=== PATIENT | female | born 1970 | race African-American/Black ===

== ENCOUNTER 2018-01-10 06:45 | Emergency (ER) | payer SELFPAY ==
--- NOTE | 2018-01-10 07:53 | ER ---
Nurse's Notes [facility] Name: Kavitha Martinez Age: 47 yrs Sex: Female : 1970 Arrival Date: 01/10/2018 Time: 06:48 Bed 18 Private MD: Diagnosis: Cutaneous abscess of left axilla Presentation: 01/10 07:09 Presenting complaint: Patient states: abscess to left axilla X 2 days. Transition of iw care: patient was not received from another setting of care. Onset of symptoms was January 07, 2018. Risk Assessment: Do you want to hurt yourself or someone else? Patient reports no desire to harm self or others. Initial Sepsis Screen: Does the patient meet any 2 criteria? No. Patient's initial sepsis screen is negative. Does the patient have a suspected source of infection? No. Patient's initial sepsis screen is negative. Care prior to arrival: None. 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 - Social history:: Smoking status: Patient/guardian denies using tobacco. - Ebola Screening: : Patient negative for fever greater than or equal to 101.5 degrees Fahrenheit, and additional compatible Ebola Virus Disease symptoms Patient denies exposure to infectious person Patient denies travel to an Ebola-affected area in the 21 days before illness onset No symptoms or risks identified at this time. Screenin:27 Abuse screen: Denies threats or abuse. Nutritional screening: No deficits noted. em Tuberculosis screening: No symptoms or risk factors identified. Fall Risk None identified. Assessment: 07:40 General: Appears in no apparent distress. Behavior is calm, cooperative. Pain: iw Complains of pain in left axilla. Neuro: Level of Consciousness is awake, alert, obeys commands, Oriented to person, place, time, situation, Moves all extremities. Full function. Cardiovascular: Patient's skin is warm and dry. Respiratory: Respiratory effort is even, unlabored, Respiratory pattern is regular. GI: No signs and/or symptoms were reported involving the gastrointestinal system. Derm: Skin is intact. Derm: Abscess located on left axilla is nickel sized, has no drainage, is raised. Musculoskeletal: Range of motion: intact in all extremities. Vital Signs: 07:12 BP 190 / 87; Pulse 62; Resp 16; Temp 98.2; Pulse Ox 100% on R/A; Weight 74.84 kg; iw Height 5 ft. 2 in. (157.48 cm); Pain 9/10; 08:10 BP 172 / 95; Pulse 67; Resp 18; Pulse Ox 99% on R/A; em 07:12 Body Mass Index 30.18 (74.84 kg, 157.48 cm) iw 08:10 pt has not had BP meds this morning em ED Course: 06:48 Patient arrived in ED. ds1 07:11 Triage completed. iw 07:12 Arm band placed on. iw 07:19 Idalia Felipe FNP-C is PHCP. snw 07:19 Sonu Menchaca MD is Attending Physician. snw 07:26 Aki Mckenzie LVN is Primary Nurse. em 07:27 Patient has correct armband on for positive identification. Bed in low position. Call em light in reach. Adult w/ patient. 07:52 Rush Parsons MD is Referral Physician. snw 07:58 No provider procedures requiring assistance completed. Patient did not have IV access iw during this emergency room visit. Administered Medications: 08:05 Drug: Clindamycin 600 mg {Note: 2 ml right gluteus. 2 ml left gluteus.} Route: IM; em Site: Other; 08:15 Follow up: Response: No adverse reaction em 08:05 Drug: [place] 5 mg-325 mg 1 tabs Route: PO; em 08:15 Follow up: Response: No adverse reaction em Outcome: 07:53 Discharge ordered by . snw 08:20 Discharged to home ambulatory. em 08:20 Condition: good 08:20 Discharge instructions given to patient, Instructed on discharge instructions, follow up and referral plans. medication usage, Demonstrated understanding of instructions, follow-up care, medications, Prescriptions given X 2. 08:20 Patient left the ED. em Signatures: Idalia Felipe FNP-C FNP-[place] Aki Mckenzie, TAFFY CANDY MAKER TAFFY CANDY MAKER em Thang, Neela ds1 [place], RN RN iw
--- NOTE | 2018-01-10 07:53 | EDPHYS ---
Physician Documentation [facility] Name: Kavitha Martinez Age: 47 yrs Sex: Female : 1970 Arrival Date: 01/10/2018 Time: 06:48 Bed 18 Private MD: ED Physician Sonu Menchaca HPI: 01/10 08:00 This 47 yrs old Black Female presents to ER via Ambulatory with complaints of Bump snw Under Armpit. 08:00 Pt has hx of axillary abscess to right, tenderness and swelling to axilla on left x 2 snw days. Onset: The symptoms/episode began/occurred suddenly, 2 day(s) ago. Severity of symptoms: At their worst the symptoms were moderate. The patient has experienced a previous episode. The patient has not recently seen a physician, Sees Dr. Meija. no fever. 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 - Social history:: Smoking status: Patient/guardian denies using tobacco. - Ebola Screening: : Patient negative for fever greater than or equal to 101.5 degrees Fahrenheit, and additional compatible Ebola Virus Disease symptoms Patient denies exposure to infectious person Patient denies travel to an Ebola-affected area in the 21 days before illness onset No symptoms or risks identified at this time. ROS: 07:59 Constitutional: Negative for fever, chills, and weight loss, Eyes: Negative for injury, snw pain, redness, and discharge, ENT: Negative for injury, pain, and discharge, Neck: Negative for injury, pain, and swelling, Cardiovascular: Negative for chest pain, palpitations, and edema, Respiratory: Negative for shortness of breath, cough, wheezing, and pleuritic chest pain, Abdomen/GI: Negative for abdominal pain, nausea, vomiting, diarrhea, and constipation, Back: Negative for injury and pain, : Negative for injury, bleeding, discharge, and swelling, MS/Extremity: Negative for injury and deformity, Neuro: Negative for headache, weakness, numbness, tingling, and seizure. 07:59 Skin: Positive for abscess, of the left axilla. Exam: 07:58 Constitutional: This is a well developed, well nourished patient who is awake, alert, snw and in no acute distress. Head/Face: Normocephalic, atraumatic. Eyes: Pupils equal round and reactive to light, extra-ocular motions intact. Lids and lashes normal. Conjunctiva and sclera are non-icteric and not injected. Cornea within normal limits. Periorbital areas with no swelling, redness, or edema. ENT: Nares patent. No nasal discharge, no septal abnormalities noted. Tympanic membranes are normal and external auditory canals are clear. Oropharynx with no redness, swelling, or masses, exudates, or evidence of obstruction, uvula midline. Mucous membranes moist. Neck: Trachea midline, no thyromegaly or masses palpated, and no cervical lymphadenopathy. Supple, full range of motion without nuchal rigidity, or vertebral point tenderness. No Meningismus. Chest/axilla: Normal chest wall appearance and motion. Nontender with no deformity. Left axilla with pustule, no erythema, + chain of induration toward lateral axilla, Hx of same on right Cardiovascular: Regular rate and rhythm with a normal S1 and S2. No gallops, murmurs, or rubs. Normal PMI, no JVD. No pulse deficits. Respiratory: Lungs have equal breath sounds bilaterally, clear to auscultation and percussion. No rales, rhonchi or wheezes noted. No increased work of breathing, no retractions or nasal flaring. Abdomen/GI: Soft, non-tender, with normal bowel sounds. No distension or tympany. No guarding or rebound. No evidence of tenderness throughout. Back: No spinal tenderness. No costovertebral tenderness. Full range of motion. Skin: Warm, dry with normal turgor. Normal color with no rashes, no lesions, and no evidence of cellulitis. MS/ Extremity: Pulses equal, no cyanosis. Neurovascular intact. Full, normal range of motion. Neuro: Awake and alert, GCS 15, oriented to person, place, time, and situation. Cranial nerves II-XII grossly intact. Motor strength 5/5 in all extremities. Sensory grossly intact. Cerebellar exam normal. Normal gait. Psych: Awake, alert, with orientation to person, place and time. Behavior, mood, and affect are within normal limits. Vital Signs: 07:12 BP 190 / 87; Pulse 62; Resp 16; Temp 98.2; Pulse Ox 100% on R/A; Weight 74.84 kg; iw Height 5 ft. 2 in. (157.48 cm); Pain 9/10; 08:10 BP 172 / 95; Pulse 67; Resp 18; Pulse Ox 99% on R/A; em 07:12 Body Mass Index 30.18 (74.84 kg, 157.48 cm) iw 08:10 pt has not had BP meds this morning em MDM: 07:19 Patient medically screened. snw 07:59 Data reviewed: vital signs, nurses notes. Data interpreted: Pulse oximetry: on room air snw is 100 %. Interpretation: normal. Counseling: I had a detailed discussion with the patient and/or guardian regarding: the historical points, exam findings, and any diagnostic results supporting the discharge/admit diagnosis, the presence of at least one elevated blood pressure reading (>120/80) during this emergency department visit, the need for outpatient follow up, to return to the emergency department if symptoms worsen or persist or if there are any questions or concerns that arise at home. Special discussion: I have referred the patient to see his PCP for further evaluation of high blood pressure. Based on the history and exam findings, there is no indication for further emergent testing or inpatient evaluation. I discussed with the patient/guardian the need to see the general surgeon for further evaluation of the symptoms. I discussed with the patient/guardian the need to see the primary care provider for further evaluation of the symptoms. Administered Medications: 08:05 Drug: Clindamycin 600 mg {Note: 2 ml right gluteus. 2 ml left gluteus.} Route: IM; em Site: Other; 08:15 Follow up: Response: No adverse reaction em 08:05 Drug: [place] 5 mg-325 mg 1 tabs Route: PO; em 08:15 Follow up: Response: No adverse reaction em Disposition: 18 07:53 Discharged to Home. Impression: Cutaneous abscess of left axilla. - Condition is Stable. - Discharge Instructions: Skin Abscess, Heat Therapy. - Prescriptions for Clindamycin HCl 300 mg Oral Capsule - take 1 capsule by ORAL route every 6 hours for 10 days; 40 capsule. Diclofenac Sodium 75 mg Oral Tablet Sustained Release - take 1 tablet by ORAL route 2 times per day; 30 tablet. - Work release form, Medication Reconciliation Form, Thank You Letter, Antibiotic Education, Prescription Opioid Use form. - Follow up: Private Physician; When: 1 week; Reason: Recheck today's complaints, Continuance of care, Re-evaluation by your physician. Follow up: Rush Parsons MD; When: 2 - 3 days; Reason: Recheck today's complaints, Continuance of care. Addendum: 01/12/2018 10:09 Co-signature as Attending Physician, Sonu Menchaca MD. g s Signatures: Idalia Felipe, EDUCATIONAL DIAGNOSTICIAN-C EDUCATIONAL DIAGNOSTICIAN-Csnw Aki Mckenzie, MATEUS NATHANN [place], RN RN iw Sonu Menchaca MD MD gs Corrections: (The following items were deleted from the chart) 01/10 08:20 07:53 01/10/2018 07:53 Discharged to Home. Impression: Cutaneous abscess of left em axilla. Condition is Stable. Forms are Medication Reconciliation Form, Thank You Letter, Antibiotic Education, Prescription Opioid Use. Follow up: Private Physician; When: 1 week; Reason: Recheck today's complaints, Continuance of care, Re-evaluation by your physician. Follow up: Rush Parsons; When: 2 - 3 days; Reason: Recheck today's complaints, Continuance of care. snw
[2018-01-10] MEDS ORDERED: CLINDAMYCIN IV 150 MG/ML (4 mL) VIAL ONE (08:04)
[2018-01-10] MEDS ORDERED: HYDROCODONE/APAP 5/325 MG TAB ONE (08:04)
[2018-01-10 08:26] VITALS: TEMP 98.2
[2018-01-10 08:27] VITALS: BP 172/95; O2SAT 99
== END 2018-01-10 08:20 | disposition home or self-care (01) ==
LOC: ER 06:45
DX: L02.412 Cutaneous abscess of left axilla (principal); I10 Essential (primary) hypertension
CPT/HCPCS: 96372; 99283; S0077

== ENCOUNTER 2018-09-03 07:30 | Emergency (ER) | payer SELFPAY ==
[2018-09-03 08:15] LABS: Absolute Lymphocytes (CBC) 2.5 K/uL (0.7-4.9); Absolute Monocytes 0.4 K/uL (0.1-1.3); Absolute Neutrophil 5.2 K/uL (1.8-8.0); Basophils % 0.4 % (0-1.3); Eosinophils % 3.2 % (0-4.4); Hematocrit 37.5 % (36.0-45.0); Lymphocytes % 29.8 % (15.3-44.8); MPV 7.5 fL (7.6-11.3); Monocytes % 4.6 % (3.3-12.3); Protime INR 0.98; RBC Red Blood Cell Count 4.39 M/uL (3.86-4.86)
[2018-09-03 08:27] LABS: ALT/SGPT 22 U/L (12-78); AST/SGOT 15 U/L (15-37); Alkaline Phosphatase 123 U/L (45-117); BUN Blood Urea Nitrogen 10 mg/dL (7-18); Bicarbonate 28 mmol/L (21-32); Bilirubin Direct 0.2 mg/dL (0-0.2); Bilirubin Total 0.6 mg/dL (0.2-1.0); Glucose Level 88 mg/dL (74-106); Magnesium 2.4 mg/dL (1.8-2.4); NT PRO-BNP 58 pg/mL (<125); Potassium 3.9 mmol/L (3.5-5.1); Protein, Total 8.4 g/dL (6.4-8.2); Sodium Level 142 mmol/L (136-145); Troponin (Emerg Dept Use Only) < 0.02 ng/mL (0.0-0.045)
--- NOTE | 2018-09-03 08:37 | EKG ---
Test Date: 2018-09-03 Test Time: 07:58:15 Greeter: PATRICIA MEASUREMENT RESULTS: Intervals: Rate: 65 NV: 178 QRSD: 84 QT: 438 QTc: 455 [place]: P: 42 NV: 178 QRS: 10 T: 44 INTERPRETIVE STATEMENTS: Normal sinus rhythm Minimal voltage criteria for LVH, may be normal variant Septal infarct, age undetermined Abnormal ECG Compared to ECG 04/25/2017 10:18:25 Myocardial infarct finding now present Electronically Signed On 09-03-18 08:36:23 CDT by Ayan Grant
--- NOTE | 2018-09-03 08:37 | RAD REPORT ---
EXAM DESCRIPTION: Dwaine Single View09/03/2018 8:21 am CLINICAL HISTORY: Chest pain COMPARISON: 2016 FINDINGS: The lungs appear clear of acute infiltrate. The heart is normal size IMPRESSION: No acute abnormalities displayed
--- NOTE | 2018-09-03 08:41 | RAD REPORT ---
EXAM DESCRIPTION: RAD - Hip Left 2 View - 09/03/2018 8:21 am CLINICAL HISTORY: Left hip pain FINDINGS: No fracture or dislocation is seen. Mild joint space narrowing involves the left hip
--- NOTE | 2018-09-03 08:43 | RAD REPORT ---
EXAM DESCRIPTION: RAD - Knee Left 3 View - 09/03/2018 8:21 am CLINICAL HISTORY: Left knee pain FINDINGS: Marked osteoarthritis involves the lateral compartment consisting of joint space narrowing , subchondral sclerosis and osteophytes. No fracture or dislocation seen
--- NOTE | 2018-09-03 08:53 | EDPHYS ---
Physician Documentation [facility] Name: Kavitha Martinez Age: 48 yrs Sex: Female : 1970 Arrival Date: 09/03/2018 Time: 07:32 Bed 5 Private MD: Jc Mejia E ED Physician Arya Dangelo HPI: 09/03 08:05 This 48 yrs old Black Female presents to ER via Ambulatory with complaints of Hip Pain, pm1 Leg Pain, Lung Pain. 08:05 The patient or guardian reports chest pain that is located primarily in the right pm1 breast. Onset: 2 day(s) ago. The pain does not radiate. Associated signs and symptoms: Pertinent negatives: abdominal pain, cough, headache, shortness of breath. The chest pain is described as squeezing. Modifying factors: The symptoms are alleviated by nothing. the symptoms are aggravated by deep breath, palpation of area. Severity of pain: in the emergency department the pain is actually worse. The patient has not experienced similar symptoms in the past. The patient has not recently seen a physician. Patient with left knee pain and left hip pain that has been present for multiple months. Pain is worse in the morning. Historical: - Allergies: 07:46 NKA; ss - Home Meds: 07:46 lisinopril 10 mg Oral tab once daily [Active]; ss - PMHx: 07:46 Hypertension; GERD; ss - PSHx: 07:46 Knee surgery; L hip replacement; ss - Immunization history:: Adult Immunizations up to date. - Social history:: Smoking status: Patient/guardian denies using tobacco. - Ebola Screening: : Patient denies exposure to infectious person Patient denies travel to an Ebola-affected area in the 21 days before illness onset. ROS: 08:05 Constitutional: Negative for fever, chills, and weight loss, Eyes: Negative for injury, pm1 pain, redness, and discharge, ENT: Negative for injury, pain, and discharge, Neck: Negative for injury, pain, and swelling. 08:05 Respiratory: Negative for shortness of breath, cough, wheezing, and pleuritic chest pain, Abdomen/GI: Negative for abdominal pain, nausea, vomiting, diarrhea, and constipation, Back: Negative for injury and pain, : Negative for injury, bleeding, discharge, and swelling. 08:05 Skin: Negative for injury, rash, and discoloration, Neuro: Negative for headache, weakness, numbness, tingling, and seizure. 08:05 Cardiovascular: Positive for chest pain, Negative for edema, orthopnea, palpitations. 08:05 MS/extremity: Positive for pain, of the left hip and left knee, Negative for decreased range of motion, deformity. Exam: 08:05 Constitutional: This is a well developed, well nourished patient who is awake, alert, pm1 and in no acute distress. Head/Face: Normocephalic, atraumatic. Eyes: Pupils equal round and reactive to light, extra-ocular motions intact. Lids and lashes normal. Conjunctiva and sclera are non-icteric and not injected. Cornea within normal limits. Periorbital areas with no swelling, redness, or edema. ENT: Nares patent. No nasal discharge, no septal abnormalities noted. Tympanic membranes are normal and external auditory canals are clear. Oropharynx with no redness, swelling, or masses, exudates, or evidence of obstruction, uvula midline. Mucous membranes moist. Neck: Trachea midline, no thyromegaly or masses palpated, and no cervical lymphadenopathy. Supple, full range of motion without nuchal rigidity, or vertebral point tenderness. No Meningismus. 08:05 Cardiovascular: Regular rate and rhythm with a normal S1 and S2. No gallops, murmurs, or rubs. Normal PMI, no JVD. No pulse deficits. Respiratory: Lungs have equal breath sounds bilaterally, clear to auscultation and percussion. No rales, rhonchi or wheezes noted. No increased work of breathing, no retractions or nasal flaring. Abdomen/GI: Soft, non-tender, with normal bowel sounds. No distension or tympany. No guarding or rebound. No evidence of tenderness throughout. Back: No spinal tenderness. No costovertebral tenderness. Full range of motion. Skin: Warm, dry with normal turgor. Normal color with no rashes, no lesions, and no evidence of cellulitis. 08:05 Chest/axilla: Inspection: normal, Palpation: crepitus, is not appreciated, tenderness, of the right breast, that totally reproduces the patient's complaints. 08:05 Musculoskeletal/extremity: Extremities: grossly normal except: noted in the left knee: tenderness, There is no evidence of decreased ROM, deformity, swelling, noted in the left hip: no evidence of decreased ROM, deformity, tenderness. 08:05 Neuro: Orientation: is normal, Motor: moves all fours. 08:05 ECG: NSR 65 BPM pm1 Vital Signs: 07:46 BP 173 / 78; Pulse 57; Resp 16; Temp 97.6(O); Pulse Ox 100% on R/A; Weight 95.25 kg; ss Height 5 ft. 2 in. (157.48 cm); Pain 7/10; 08:30 BP 156 / 66; Pulse 64; Resp 16; Pulse Ox 99% on R/A; hb 09:30 BP 141 / 69; Pulse 60; Resp 16; Pulse Ox 99% on R/A; Pain 7/10; hb 07:46 Body Mass Index 38.41 (95.25 kg, 157.48 cm) ss MDM: 07:40 Patient medically screened. pm1 08:47 Data reviewed: vital signs. Data interpreted: Pulse oximetry: on room air is 100 %. pm1 Interpretation: normal. Counseling: I had a detailed discussion with the patient and/or guardian regarding: the historical points, exam findings, and any diagnostic results supporting the discharge/admit diagnosis, lab results, radiology results, the need for outpatient follow up, to return to the emergency department if symptoms worsen or persist or if there are any questions or concerns that arise at home. 09/03 07:49 Order name: Basic Metabolic Panel; Complete Time: 08:35 pm09/03 07:49 Order name: CBC with Diff; Complete Time: 08:35 pm09/03 07:49 Order name: LFT's; Complete Time: 08:35 pm09/03 07:49 Order name: Magnesium; Complete Time: 08:35 pm09/03 07:49 Order name: NT PRO-BNP; Complete Time: 08:35 pm09/03 07:49 Order name: PT-INR; Complete Time: 08:35 pm09/03 07:49 Order name: Hip Left 2 View XRAY; Complete Time: 08:46 pm09/03 07:49 Order name: Knee Left 3 View XRAY; Complete Time: 08:46 pm09/03 07:49 Order name: Troponin (emerg Dept Use Only); Complete Time: 08:35 pm1 09/03 07:49 Order name: XRAY Chest (1 view); Complete Time: 08:39 pm1 09/03 07:49 Order name: EKG; Complete Time: 07:50 pm1 09/03 07:49 Order name: Cardiac monitoring; Complete Time: 08:04 pm1 09/03 07:49 Order name: EKG - Nurse/Tech; Complete Time: 08:04 pm1 09/03 07:49 Order name: IV Saline Lock; Complete Time: 08:04 pm1 09/03 07:49 Order name: Labs collected and sent; Complete Time: 08:04 pm1 09/03 07:49 Order name: O2 Per Protocol; Complete Time: 08:04 pm1 09/03 07:49 Order name: O2 Sat Monitoring; Complete Time: 08:04 pm1 Administered Medications: 09:38 Drug: [place] 5 mg-325 mg 1 tabs Route: PO; hb 09:38 Follow up: Response: Medication administered at discharge. hb 09:38 Drug: Zofran 4 mg Route: PO; hb 09:38 Follow up: Response: Medication administered at discharge. hb Disposition: 09/03/18 08:52 Discharged to Home. Impression: Chest pain, unspecified, Pain in left hip, Pain in left knee. - Condition is Stable. - Discharge Instructions: Joint Pain, Arthritis, Nonspecific Chest Pain, Knee Pain, Hip Pain. - Prescriptions for Tramadol 50 mg Oral Tablet - take 1 tablet by ORAL route every 8 hours as needed; 12 tablet. Medrol (Marvin) 4 mg Oral Tablets, Dose Pack - take 1 tablet by ORAL route as directed - follow package instructions; 1 packet. - Work release form, Medication Reconciliation Form, Thank You Letter, Antibiotic Education, Prescription Opioid Use form. - Follow up: Emergency Department; When: As needed; Reason: Worsening of condition. Follow up: Private Physician; When: 2 - 3 days; Reason: Recheck today's complaints, Continuance of care, Re-evaluation by your physician. - Problem is new. - Symptoms have improved. Addendum: 09/08/2018 10:09 Co-signature as Attending Physician, Arya Dangelo MD I agree with the assessment and k dr plan of care. Signatures: Dispatcher [employer] Arya Rios MD MD [facility] Arianne Krueger RN RN Matthew Barajas, NONI DICTATING MACHINE TYPIST pm1 Karlie Larios, ED RN Corrections: (The following items were deleted from the chart) 09/03 09:41 08:52 09/03/2018 08:52 Discharged to Home. Impression: Chest pain, unspecifiedPain in hb left hip; Pain in left knee. Condition is Stable. Forms are Medication Reconciliation Form, Thank You Letter, Antibiotic Education, Prescription Opioid Use. Follow up: Emergency Department; When: As needed; Reason: Worsening of condition. Follow up: Private Physician; When: 2 - 3 days; Reason: Recheck today's complaints, Continuance of care, Re-evaluation by your physician. Problem is new. Symptoms have improved. pm1
--- NOTE | 2018-09-03 08:53 | ER ---
Nurse's Notes [facility] Name: Kavitha Martinez Age: 48 yrs Sex: Female : 1970 Arrival Date: 09/03/2018 Time: 07:32 Bed 5 Private MD: Jc Mejia E Diagnosis: Pain in left hip;Pain in left knee;Chest pain, unspecified Presentation: 09/03 07:44 Presenting complaint: Patient states: L hip and L knee pain x months. PT reports pain ss has been becoming progressively worse, especially in the mornings. Patient also c/o tightness under R breast x 2 days when taking a deep breath. Denies cough. Transition of care: patient was not received from another setting of care. Onset of symptoms is unknown. Risk Assessment: Do you want to hurt yourself or someone else? Patient reports no desire to harm self or others. Initial Sepsis Screen: Does the patient meet any 2 criteria? No. Patient's initial sepsis screen is negative. Does the patient have a suspected source of infection? No. Patient's initial sepsis screen is negative. Care prior to arrival: None. 07:44 Method Of Arrival: Ambulatory ss 07:44 Acuity: JORJE 3 ss Historical: - Allergies: 07:46 NKA; ss - Home Meds: 07:46 lisinopril 10 mg Oral tab once daily [Active]; ss - PMHx: 07:46 Hypertension; GERD; ss - PSHx: 07:46 Knee surgery; L hip replacement; ss - Immunization history:: Adult Immunizations up to date. - Social history:: Smoking status: Patient/guardian denies using tobacco. - Ebola Screening: : Patient denies exposure to infectious person Patient denies travel to an Ebola-affected area in the 21 days before illness onset. Screenin:58 Abuse screen: Denies threats or abuse. Denies injuries from another. Nutritional hb screening: No deficits noted. Tuberculosis screening: No symptoms or risk factors identified. Fall Risk None identified. Assessment: 07:55 General: Appears in no apparent distress. Behavior is calm, cooperative. Pain: Pain hb currently is 7 out of 10 on a pain scale. Neuro: Level of Consciousness is awake, alert, obeys commands, Oriented to person, place, time, situation. Cardiovascular: Heart tones S1 S2 present Capillary refill < 3 seconds Patient's skin is warm and dry. Respiratory: Airway is patent Respiratory effort is even, unlabored, Respiratory pattern is regular, symmetrical, Breath sounds are clear bilaterally. GI: No signs and/or symptoms were reported involving the gastrointestinal system. : No signs and/or symptoms were reported regarding the genitourinary system. EENT: No signs and/or symptoms were reported regarding the EENT system. Derm: Skin is intact, is healthy with good turgor. Musculoskeletal: Reports left hip pain. 08:45 Reassessment: Patient appears in no apparent distress at this time. Patient and/or hb family updated on plan of care and expected duration. Pain level reassessed. Patient is alert, oriented x 3, equal unlabored respirations, skin warm/dry/pink. 09:39 Reassessment: Patient appears in no apparent distress at this time. No changes from hb previously documented assessment. Vital Signs: 07:46 BP 173 / 78; Pulse 57; Resp 16; Temp 97.6(O); Pulse Ox 100% on R/A; Weight 95.25 kg; ss Height 5 ft. 2 in. (157.48 cm); Pain 7/10; 08:30 BP 156 / 66; Pulse 64; Resp 16; Pulse Ox 99% on R/A; hb 09:30 BP 141 / 69; Pulse 60; Resp 16; Pulse Ox 99% on R/A; Pain 7/10; hb 07:46 Body Mass Index 38.41 (95.25 kg, 157.48 cm) ED Course: 07:32 Patient arrived in ED. as 07:33 Jc Mejia MD is Private Physician. as 07:35 Matthew Barajas NP is PHCP. pm1 07:35 Arya Dangelo MD is Attending Physician. pm1 07:45 Triage completed. ss 07:46 Arm band placed on right wrist. ss 07:50 Karlie Larios RN is Primary Nurse. hb 07:58 Inserted saline lock: 22 gauge in right antecubital area, using aseptic technique. hb Blood collected. 08:01 EKG done, by oxygen equipment technician. reviewed by Matthew Barajas NP. at1 08:05 Patient has correct armband on for positive identification. Placed in gown. Bed in low hb position. Call light in reach. Side rails up X 1. 08:22 Hip Left 2 View XRAY In Process Unspecified. EDMS 08:22 Knee Left 3 View XRAY In Process Unspecified. EDMS 08:22 XRAY Chest (1 view) In Process Unspecified. EDMS 09:40 No provider procedures requiring assistance completed. IV discontinued, intact, hb bleeding controlled, No redness/swelling at site. Pressure dressing applied. Administered Medications: 09:38 Drug: [place] 5 mg-325 mg 1 tabs Route: PO; hb 09:38 Follow up: Response: Medication administered at discharge. hb 09:38 Drug: Zofran 4 mg Route: PO; hb 09:38 Follow up: Response: Medication administered at discharge. hb Outcome: 08:52 Discharge ordered by MD. pm1 09:40 Discharged to home ambulatory, with significant other. hb 09:40 Condition: stable 09:40 Discharge instructions given to patient, Instructed on discharge instructions, follow up and referral plans. medication usage, Demonstrated understanding of instructions, follow-up care, medications, Prescriptions given X 2. 09:41 Patient left the ED. hb Signatures: Dispatcher [employer] Viktoria Baker Shelby, RN RN ss Maggy Mcknight, home staging specialist EKG Tat1 Matthew Barajas, NONI TRANSPORTATION SUPERVISOR pm1 Karlie Larios, RN RN hb
[2018-09-03] MEDS ORDERED: ONDANSETRON 4 MG (ODT) TAB ONE (09:44)
[2018-09-03] MEDS ORDERED: HYDROCODONE/APAP 5/325 MG TAB ONE (09:44)
[2018-09-03 09:51] VITALS: TEMP 97.6
[2018-09-03 09:53] VITALS: O2SAT 99
[2018-09-03 09:54] VITALS: BP 141/69
== END 2018-09-03 09:41 | disposition home or self-care (01) ==
LOC: ER 07:30
DX: R07.9 Chest pain, unspecified (principal); M25.562 Pain in left knee; M25.552 Pain in left hip; I10 Essential (primary) hypertension; K21.9 Gastro-esophageal reflux disease without esophagitis
CPT/HCPCS: 36415; 71045; 80048; 80076; 83735; 83880; 84484; 85025; 85610; 93005; 99284

== ENCOUNTER 2019-10-06 08:57 | Emergency (ER) | payer SELFPAY ==
--- OUTSIDE RECORDS SUMMARY | 2019-10-06 09:54 | XMS REPORT ---
:1970 Author Organization [facility] t Address [address] [place] [address] Care Team Providers Name Role Phone Emily Allen Attending Clinician Problems This patient has no known problems. Allergies, Adverse Reactions, Alerts This patient has no known allergies or adverse reactions. Medications This patient has no known medications. Procedures This patient has no known procedures. Encounters Start End Encounter Admission Attending Care Care Encounter Source Date/Time Date/Time Type Type Clinicians Facility Department ID 2019-08-12 2019-08-12 Telephone Ling PAJERICHO [id number] 00:00:00 00:00:00 [facility] [id number] [place] [id number] [place] [id number] [address]al [address] Results This patient has no known results.
--- OUTSIDE RECORDS SUMMARY | 2019-10-06 09:54 | XMS REPORT | Summary of Care ---
:1970 Author Organization [facility] Address [address] [place] [id number] Care Team Providers Name Role Phone Jackie Antonina Primary Care Provider Reason for Visit Reason Comments Results Encounter Details Date Type Department Care Team Description 08/12/2019 Telephone [facility] Pravin wallace, GLEN Crowley Results - [address] [place] [address] [place] [address] [phone] Allergies No Known Allergiesdocumented as of this encounter (statuses as of 08/12/2019) Medications Medication Sig Dispensed Refills Start Date End Date Status lisinopril 20 mg Take 20 mg by 0 Active tablet mouth daily. benzonatate (TESSALON Take 1 capsule 30 capsule 0 08/11/2019 0 08/21/2019 Active PERLES) 100 mg by mouth 3 capsuleIndications: (three) times Acute URI, Cough, daily for 10 History of fever days. documented as of this encounter (statuses as of 08/12/2019) Active Problems Problem Noted Date Hypertension 08/11/2019 documented as of this encounter (statuses as of 08/12/2019) Social History Tobacco Use Types Packs/Day Years Used Date Never Smoker Smokeless Tobacco: Never Used Sex Assigned at Date Recorded Not on file Job Start Date Occupation Industry Not on file Not on file Not on file Travel History Travel Start Travel End No recent travel history available. documented as of this encounter Last Filed Vital Signs Not on filedocumented in this encounter Plan of Treatment Health Maintenance Due Date Last Done Comments DTaP,Tdap,and Td Vaccines (1 - 08/14/1983 Tdap) PAP SMEAR 1993 Breast Cancer Screening 2012 (MAMMOGRAM) INFLUENZA VACCINE (#1) 2019 PNEUMOCOCCAL 0-64 YEARS COMBINED Aged Out No longer eligible based on SERIES patient's age to complete this topic documented as of this encounter Results Not on filedocumented in this encounter
--- OUTSIDE RECORDS SUMMARY | 2019-10-06 09:54 | XMS REPORT | Summary of Care ---
:1970 Author Organization [facility] Address [address] [place] [id number] Care Team Providers Name Role Phone Jackie Antonina Primary Care Provider Reason for Visit Reason Comments Results Encounter Details Date Type Department Care Team Description 08/12/2019 Telephone [facility] Family Medicine Pravin wallace, GLEN Crowley Results - [address] [place] [address] [place] [address] [phone] Allergies No Known Allergiesdocumented as of this [...]
[2019-10-06 13:30] VITALS: BP 181/87; TEMP 97.9; O2SAT 99
--- NOTE | 2019-10-11 14:12 | EDPHYS ---
Physician Documentation [facility] Name: Kavitha Black Age: 49 yrs Sex: Female : 1970 Arrival Date: 10/06/2019 Time: 09:01 Bed 12 Private MD: Jc Mejia E ED Physician Arya Dangelo HPI: 10/05 09:40 This 49 yrs old Female presents to ER via Ambulatory with complaints of Insect Bite. jmm 09:40 The patient or guardian complains of a bite, by an insect. jmm 09:40 Onset: The symptoms/episode began/occurred today. Modifying factors: The symptoms are jmm alleviated by vinegar topical. the symptoms are aggravated by nothing. This is a 49 year old female with a history of htn that presents to the ED with complaints of an insect bite with arm discomfort and swelling to her right eye. Denies vomiting, shortness of breath. . 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 - Social history:: Smoking status: Patient denies any tobacco usage or history of. ROS: 09:40 Constitutional: Negative for fever, chills, and weight loss, Cardiovascular: Negative jmm for chest pain, palpitations, and edema, Respiratory: Negative for shortness of breath, cough, wheezing, and pleuritic chest pain. 09:40 Skin: Positive for 09:40 All other systems are negative. Exam: 09:40 Constitutional: This is a well developed, well nourished patient who is awake, alert, jmm and in no acute distress. Head/Face: atraumatic. Eyes: EOMI, no conjunctival erythema appreciated ENT: Moist Mucus Membranes Neck: Trachea midline, Supple Chest/axilla: Normal chest wall appearance and motion. Cardiovascular: Regular rate and rhythm. No edema appreciated Respiratory: Normal respirations, no respiratory distress appreciated Abdomen/GI: Non distended, soft Back: Normal ROM 09:40 Skin: small insect bite noted to the right volar forearm, non tender to palpation, no induration appreciated. 09:40 Neuro: Orientation: is normal, Mentation: is normal, Memory: is normal. 09:40 Psych: Behavior/mood is pleasant, cooperative. Vital Signs: 09:26 BP 181 / 87; Pulse 70; Resp 16; Temp 97.9; Pulse Ox 99% on R/A; Weight 81.65 kg; Height hb 5 ft. 2 in. (157.48 cm); Pain 6/10; 09:26 Body Mass Index 32.92 (81.65 kg, 157.48 cm) hb MDM: 09:40 Patient medically screened. [facility] 10:07 Data reviewed: vital signs, nurses notes. Counseling: I had a detailed discussion with [facility] the patient and/or guardian regarding: the historical points, exam findings, and any diagnostic results supporting the discharge/admit diagnosis, the need for outpatient follow up, to return to the emergency department if symptoms worsen or persist or if there are any questions or concerns that arise at home. Administered Medications: No medications were administered Disposition: 14:01 Co-signature as Attending Physician, Arya Dangelo MD I agree with the assessment and kdr plan of care. Disposition: 10/06/19 10:08 Discharged to Home. Impression: Insect bite (nonvenomous) of forearm. - Condition is Stable. - Discharge Instructions: Insect Bite. - Prescriptions for Medrol (Marvin) 4 mg Oral Tablets, Dose Pack - take 1 tablet by ORAL route as directed - follow package instructions; 1 packet. - Medication Reconciliation Form, Thank You Letter, Antibiotic Education, Prescription Opioid Use form. - Follow up: Private Physician; When: 2 - 3 days; Reason: Recheck today's complaints, Continuance of care, Re-evaluation by your physician. Signatures: Arya Dangelo MD MD kdr Mickail, Joel, PA PA [facility] Karlie Larios, ED RN Corrections: (The following items were deleted from the chart) 10:12 10:08 10/06/2019 10:08 Discharged to Home. Impression: Insect bite (nonvenomous) of hb forearm. Condition is Stable. Forms are Medication Reconciliation Form, Thank You Letter, Antibiotic Education, Prescription Opioid Use. Follow up: Private Physician; When: 2 - 3 days; Reason: Recheck today's complaints, Continuance of care, Re-evaluation by your physician. [email or web address]
--- NOTE | 2019-10-11 14:12 | ER ---
Nurse's Notes [facility] Name: Kavitha Black Age: 49 yrs Sex: Female : 1970 Arrival Date: 10/06/2019 Time: 09: Bed 12 Private MD: Jc Mejia E Diagnosis: Insect bite (nonvenomous) of forearm Presentation: 10/05 09:26 Chief complaint: Painful and itchy bite by unknown insect on lower forearm upon waking hb today. Coronavirus screen: Proceed with normal triage. Ebola Screen: No symptoms or risks identified at this time. Initial Sepsis Screen: Does the patient meet any 2 criteria? No. Patient's initial sepsis screen is negative. Does the patient have a suspected source of infection? No. Patient's initial sepsis screen is negative. Risk Assessment: Do you want to hurt yourself or someone else? Patient reports no desire to harm self or others. Onset of symptoms was October 06, 2019. 09:26 Method Of Arrival: Ambulatory hb 09:26 Acuity: JORJE 4 hb Triage Assessment: : General: Appears in no apparent distress. Behavior is calm, cooperative. Pain: Pain hb currently is 6 out of 10 on a pain scale. EENT: No signs and/or symptoms were reported regarding the EENT system. Neuro: Level of Consciousness is awake, alert, obeys commands. Cardiovascular: Capillary refill < 3 seconds Patient's skin is warm and dry. Respiratory: Airway is patent Respiratory effort is even, unlabored, Respiratory pattern is regular, symmetrical. GI: No signs and/or symptoms were reported involving the gastrointestinal system. : No signs and/or symptoms were reported regarding the genitourinary system. Derm: Skin is pink, warm \T\ dry. minor swelling and redness noted to left FA. Musculoskeletal: No signs and/or symptoms reported regarding the musculoskeletal system. 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 - Social history:: Smoking status: Patient denies any tobacco usage or history of. Screenin:09 Abuse screen: Denies threats or abuse. Denies injuries from another. Nutritional hb screening: No deficits noted. Tuberculosis screening: No symptoms or risk factors identified. Fall Risk None identified. Assessment: 10:09 General: see triage. hb Vital Signs: 09: BP 181 / 87; Pulse 70; Resp 16; Temp 97.9; Pulse Ox 99% on R/A; Weight 81.65 kg; Height hb 5 ft. 2 in. (157.48 cm); Pain 6/10; 09:26 Body Mass Index 32.92 (81.65 kg, 157.48 cm) hb ED Course: 09:01 Patient arrived in ED. mr 09:01 Jc Mejia MD is Private Physician. mr 09:27 Triage completed. hb 09:28 Arm band placed on. hb 09:32 Faizan Persaud PA is PHCP. [facility] 09:32 Arya Dangelo MD is Attending Physician. [facility] 10:08 Karlie Larios, ED is Primary Nurse. hb 10:09 Patient has correct armband on for positive identification. hb 10:10 No provider procedures requiring assistance completed. Patient did not have IV access hb during this emergency room visit. Administered Medications: No medications were administered Outcome: 10:08 Discharge ordered by . [facility] 10:12 Discharged to home ambulatory. hb 10:12 Condition: stable 10:12 Discharge instructions given to patient, Instructed on discharge instructions, follow up and referral plans. medication usage, wound care, Demonstrated understanding of instructions, follow-up care, medications, wound care, Prescriptions given X 1. 10:13 Patient left the ED. hb Signatures: Fiazan Persaud PA PA jmm Rivera, Mary mr Karlie Larios, RN RN hb
== END 2019-10-06 10:13 | disposition home or self-care (01) ==
LOC: ER 08:57
DX: S50.861A Insect bite (nonvenomous) of right forearm, initial encounter (principal); I10 Essential (primary) hypertension
CPT/HCPCS: 99282